=== PATIENT | male | born 1980 | race Caucasian/White ===

== ENCOUNTER 2016-11-27 06:50 | Emergency (ER) | payer OTHER ==
[~2016-11-27] VITALS: Ht 188 cm; Wt 100.0 kg
[2016-11-27] MEDS ORDERED: IBUPROFEN 800 MG TAB PO ONE (08:30)
[2016-11-27] MEDS ORDERED: CYCLOBENZAPRINE 10 MG TAB PO ONE (08:30)
[2016-11-27] MEDS ORDERED: IBUP80TA PO (09:56)
[2016-11-27] MEDS ORDERED: CYCL10TA PO (09:56)
[2016-11-27 10:08] VITALS: BP 140/90
== END 2016-11-27 10:11 | disposition home or self-care (01) ==
LOC: M ED 06:50
DX: Z04.1 Encounter for examination and observation following transport accident (principal); V43.52XA Car driver injured in collision with other type car in traffic accident, initial encounter; Y92.410 Unspecified street and highway as the place of occurrence of the external cause